=== PATIENT | male | born 1970 | race Caucasian/White ===

== ENCOUNTER 2018-04-07 12:14 | Inpatient (IN) | payer OTHER ==
[~2018-04-07] VITALS: Ht 170.2 cm; Wt 74.1 kg
[2018-04-07 13:56] LABS: Alanine Aminotransfer (ALT/SGP 185 U/L (12-78); Albumin/Globulin Ratio 1.1 (0.8-1.8); Alk Phos 62 U/L (50-136); Anion Gap 12 mmol/L (6-16); Aspartate Aminotrans (AST/SGOT 216 U/L (12-37); Blood Urea Nitrogen 15 mg/dL (8-24); Bun/Creatinine Ratio 18.4 (12.0-20.0); CO2, Blood 24 mmol/L (21-32); Calcium, Blood 9.4 mg/dL (8.5-10.1); Chloride, Blood 95 mmol/L (98-108); Creatinine, Blood 0.81 mg/dL (0.60-1.20); Ethanol (Alcohol), Blood, Med 273 mg/dL; Globulin, Blood 3.5 g/dL (2.2-4.0); Glomerular Filtration Rate >60 (60-); Glucose, Blood 104 mg/dL (70-99); Potassium, Blood 3.1 mmol/L (3.5-5.5); Salicylate <1.7 mg/dL (2.8-20.0); Sodium, Blood 131 mmol/L (136-145); Thyroxine (T4) 9.2 ug/dL (4.5-12.1); Total Protein, Blood 7.5 g/dL (6.4-8.2)
[2018-04-07 14:03] LABS: Acetaminophen, Random <2.0 ug/mL (10.0-30.0)
[2018-04-07 14:05] LABS: BASOPHILS ABSOLUTE AUTO 0.05 K/mm3 (0.00-0.23); BASOPHILS PERCENT AUTO 1 % (0-2); EOSINOPHILS PERCENT AUTO 1 % (0-6); Hematocrit 41.6 % (37.0-53.0); Hemoglobin 14.3 g/dL (13.5-17.5); IMMATURE GRAN ABSOLUTE AUTO 0.03 K/mm3 (0.00-0.10); IMMATURE GRAN PERCENT AUTO 0 % (0-1); LYMPHOCYTES ABSOLUTE AUTO 1.58 K/mm3 (0.84-5.20); LYMPHOCYTES PERCENT AUTO 21 % (21-46); MONOCYTES ABSOLUTE AUTO 1.12 K/mm3 (0.16-1.47); MONOCYTES PERCENT AUTO 15 % (4-13); Mean Corpuscular HGB 32.1 pg (26.0-34.0); Mean Corpuscular HGB Conc 34.4 g/dL (31.5-36.5); Mean Corpuscular Volume 94 fL (80-100); Mean Platelet Volume 11.4 fL (9.1-12.4); NEUTROPHILS ABSOLUTE AUTO 4.65 K/mm3 (1.96-9.15); NEUTROPHILS PERCENT AUTO 62 % (41-73); Platelet Count 170 K/mm3 (150-400); RDW Coefficient Variation 12.7 % (11.7-14.2); RDW Standard Deviation 43.8 fL (35.1-46.3); Red Blood Cell Count 4.45 M/mm3 (4.30-5.90); White Blood Cell Count 7.53 K/mm3 (4.00-11.30)
[2018-04-07 14:09] LABS: Source, Urine Clean Catch
[2018-04-07 14:14] LABS: Bilirubin, Urine Neg (Neg); Blood, Urine Neg (Neg); Glucose Qualitative, Urine Neg (Neg); Ketones, Urine Neg (Neg); Leukocyte Esterase, Urine 1+ (Neg); Nitrite, Urine Neg (Neg); Protein, Urine 2+ (Neg); Urobilinogen, Urine NORM (Normal)
[2018-04-07 14:24] LABS: Appearance, Urine Clear (Clear); Color, Urine Yellow (P-Yellow); Red Blood Cells, Urine 0-2 /hpf (0-2)
[2018-04-07 14:25] LABS: Bacteria Mod /hpf; Squamous Epithelial Cells Not Seen /hpf (Few)
[2018-04-07 14:39] LABS: U Amphetamine Screen Not Detected; U Barbituate Screen Not Detected; U Benzodiazapine Screen Not Detected; U Buprenorphine Screen Not Detected; U Cannabinoids Screen Not Detected; U Cocaine Screen Not Detected; U Methadone Screen Not Detected; U Methamphetamine Screen Not Detected; U Opiates Screen Not Detected; U Oxycodone Screen Not Detected; U Phencyclidine Screen Not Detected; U Propoxyphene Screen Not Detected
--- NOTE | 2018-04-07 19:04 | NUR ---
PT ADMITTED AT 1715 VIA STRETCHER FROM ED. PT NON-VERBAL AND UNRESPONSIVE AT PRESENT. PT PLACED ON L SIDE RECOVERY POSITION FOR AIRWAY PROTECTION. PT REPORTEDLY VOIDED IN URINAL IN ED, ATTENDS PLACE FOR NOW TO ALLOW FOR ASSESSMENT OF ROY IF NEEDED. BANANNA BAG AT 200ML VIA R WRIST. VS AND SATS NOTED. REMAINS IN ST. AIRWAY IS PATENT. PT WILL AROUSE TO SPONT COUGH AND WILL ALSO MOVE ARMS IN RANDOM FASHION. NO N/V. NO SECREATIONS WITH COUGH. REPORTED OFF TO LJ MADISON.
--- NOTE | 2018-04-07 20:00 | NUR ---
ASSUMED CARE OF PT AT 1915. REPORT RECEIVED. PT PRESENTS IN BED. SOMEWHAT SOMNULENT. PT AWAKENS AT TIMES AND THEN FALLS ASLEEP. NOTED TO BE TREMOROUS. WILL DO CIWA SCORING Q 4 HOURS AND PRN. WILL REVIEW CHART AND PLAN OF CARE FOR THIS PT.
--- NOTE | 2018-04-07 23:51 | NUR ---
PT SPEAKING IF HE IS AT WORK. STATING THAT HE NEEDED TO ORDER ITEMS FOR WORK. PT IRRITABLE AT TIMES, CONFUSED ALTHOUGH HE IS ABLE TO STATE HE IS IN THE HOSPITAL. PT'S GIRLFRIEND, CEDRIC, COMES TO SEE PT AND HAS CHOSEN TO SPEND THE NIGHT IN ROOM. PT AGREES THAT INFORMATION CAN BE GIVEN TO CEDRIC. HAVE MEDICATED PT TWICE WITH 1 MG ATIVAN, AND ONCE WITH 50 MG LIBRIUM. SEE CIWA SCORING FLOWSHEET FOR DETAILS. WILL CONTINUE TO MONITOR PT.
--- NOTE | 2018-04-08 02:10 | NUR ---
PT COOPERATIVE WITH VOIDING. WAS NOTED TO BE TRYING TO GET OUT OF BED. WHEN ASKED IF HE NEEDED TO URINATE HE STATED 'YES'. ASSISTED PT WITH URINAL. ABLE TO VOID Q.S. PT HAS BEEN MEDICATED AGAIN WITH 1 MG ATIVAN.
[2018-04-08 03:23] LABS: BASOPHILS ABSOLUTE AUTO 0.05 K/mm3 (0.00-0.23); BASOPHILS PERCENT AUTO 1 % (0-2); EOSINOPHILS PERCENT AUTO 5 % (0-6); Hematocrit 41.9 % (37.0-53.0); IMMATURE GRAN ABSOLUTE AUTO 0.01 K/mm3 (0.00-0.10); IMMATURE GRAN PERCENT AUTO 0 % (0-1); LYMPHOCYTES ABSOLUTE AUTO 1.18 K/mm3 (0.84-5.20); LYMPHOCYTES PERCENT AUTO 20 % (21-46); MONOCYTES PERCENT AUTO 14 % (4-13); Mean Corpuscular HGB 31.8 pg (26.0-34.0); Mean Corpuscular HGB Conc 33.4 g/dL (31.5-36.5); Mean Corpuscular Volume 95 fL (80-100); Mean Platelet Volume 10.5 fL (9.1-12.4); NEUTROPHILS ABSOLUTE AUTO 3.44 K/mm3 (1.96-9.15); NEUTROPHILS PERCENT AUTO 60 % (41-73); Platelet Count 157 K/mm3 (150-400); RDW Coefficient Variation 12.9 % (11.7-14.2); RDW Standard Deviation 45.5 fL (35.1-46.3); White Blood Cell Count 5.78 K/mm3 (4.00-11.30)
[2018-04-08 03:47] LABS: Alanine Aminotransfer (ALT/SGP 188 U/L (12-78); Albumin, Blood 3.5 g/dL (3.4-5.0); Albumin/Globulin Ratio 1.1 (0.8-1.8); Alk Phos 56 U/L (50-136); Anion Gap 9 mmol/L (6-16); Aspartate Aminotrans (AST/SGOT 210 U/L (12-37); Blood Urea Nitrogen 10 mg/dL (8-24); Bun/Creatinine Ratio 16.1 (12.0-20.0); CO2, Blood 25 mmol/L (21-32); Calcium, Blood 8.4 mg/dL (8.5-10.1); Chloride, Blood 106 mmol/L (98-108); Creatinine, Blood 0.62 mg/dL (0.60-1.20); Globulin, Blood 3.2 g/dL (2.2-4.0); Glomerular Filtration Rate >60 (60-); Glucose, Blood 74 mg/dL (70-99); Magnesium, Blood 1.5 mg/dL (1.6-2.4); Phosphorus, Blood 3.8 mg/dL (2.5-4.9); Potassium, Blood 3.8 mmol/L (3.5-5.5); Sodium, Blood 140 mmol/L (136-145); Total Protein, Blood 6.7 g/dL (6.4-8.2); Troponin I <0.015 ng/mL (0.000-0.040)
--- NOTE | 2018-04-08 06:00 | NUR ---
PT REMAINS WITH GROIN SITE SOFT WITHOUT HEMATOMA. NO OOZING. PT REMAINS PLEASANTLY FORGETFUL AND NEEDS GENTLE REORIENTING AT TIMES. PT DENIES PAIN. TOLERATES TURNS IN BED WELL WITHOUT COMPLAINTS. WILL CONTINUE TO MONITOR PT, AND WILL REPORT OFF TO ONCOMING RN.
--- NOTE | 2018-04-08 07:22 | NUR ---
ASSUMED CARE: PT RESTING IN BED AT THIS TIME. STATES HE KNOWS HE'S IN THE HOSPITAL BUT LISTED WRONG LOCATION. TREMORS NOTED WHEN HANDS ARE RAISED. DENIES NAUSEA OR HEADACHES AT THIS TIME. ASKED ABOUT COWORKERS, STATES THEY WERE HERE WHEN HE WAS ADMITTED. VSS AT THIS TIME. SERVICE MANAGER RN ADMINISTERED LIBRIUM AND ATIVAN. BED ALARM ON
--- NOTE | 2018-04-08 08:46 | NUR ---
DISCUSSED WITH DR SIMMONS PT'S STATUS. DR SMITH WITH CURRENT ORDERS AND PARAMETERS FOR ATIVAN AND LIBRIUM. DISCUSSED PT'S LOW MAG AND DESIRE TO EAT. MAG ALREADY IN BANANA BAG PT IS CURRENTLY RECIEVING. DIET ORDER RECIEVED. CIWA CURRENTLY 10, PT APPEARS TO BE SLEEPING AT THIS TIME
--- NOTE | 2018-04-08 14:22 | NUR ---
THIS RN TOLD PT THAT HE WAS NOT ALLOWED TO CHEW ON THIS UNIT. HE BECAME SLIGHTLY AGITATED. THE EFFECTS OF NICOTINE WAS EXPLAINED TO HIM. OFFERED NICOTINE PATCH BUT HE DECLINED. PT APPEARS TO BE SLEEPING NOW.
--- NOTE | 2018-04-08 18:24 | NUR ---
SHIFT SUMMARY: MEDICATED MULTIPLE TIMES THIS SHIFT FOR WITHDRAWAL SYMPTOMS. CIWA BETWEEN 6 AND 15 THIS SHIFT. CAME BY TO VISIT, QUESTIONS ANSWERED TO SATISFACTION. BED ALARM IN PLACE DUE TO CONFUSION AND IMPULSIVENESS AT TIMES. NO FURTHER NEEDS OR CONCERNS AT THIS TIME
--- NOTE | 2018-04-08 19:20 | NUR ---
ASSUMED CARE OF PT AT 1900. REPORT RECEIVED. PT PRESENTS ALERT AND ORIENTED. IS ABLE TO HOLD CONVERSATION. PT STATES THAT HE IS NOT HAVING THE HALLUCINATIONS THAT HE WAS HAVING PRIOR. IS ABLE TO USE URINAL AND VOID QS. IN NO APPARENT DISTRESS. WILL CONTINUE TREATMENT PLAN ESTABILISHED. WILL REVIEW CHART AND PLAN OF CARE FOR THIS PT.
--- NOTE | 2018-04-08 23:00 | NUR ---
HAVE MEDICATED PT WITH 50 MG LIBRIUM WHEREAS PT STATES HE IS FEELING BETTER. SEE CIWA SCORING FOR DETAILS. PT HAS BEEN HUNGRY AND IS ABLE TO EAT A SANDWHICH AND ROOTBEER. PT HAS BEEN OPEN ABOUT DISCUSSING HIS ETOH ABUSE. RECOMMENDATIONS GIVEN FOR AA MEETINGS AND ESTABILISHING A SUPPORT GROUP. PT STATES THAT HE NORMALLY GETS OFF WORK, AND THEN STARTS DRINKING DAILY. WILL CONTINUE TO GIVE SUPPORT AND ALLOW PT TO EXPRESS HIS FEELINGS.
--- NOTE | 2018-04-09 02:57 | NUR ---
PT CLAIMS THAT HE IS SEEING A "GIANT SPIDER WALKING ON THE FLOOR" HAD MILD TO MODERATE TREMORS. MEDICATED PT WITH 50 MG LIBRIUM. PT HAS BEEN ABLE TO REST SOME WITHOUT FURTHER REPORTS OF HALLUCINATIONS. HAS HAD FOUR BOUTS OF LOOSE STOOLS. SAMPLE SENT TO LAB FOR R/O C-DIFF WHICH HAS RETURNED NEGATIVE. HAVE ADVANCED DIET FOR PT TO REGULAR. NO SWALLOW ISSUES TO NOTE. WILL CONTINUE TO MONITOR PT.
[2018-04-09 04:34] LABS: BASOPHILS ABSOLUTE AUTO 0.04 K/mm3 (0.00-0.23); BASOPHILS PERCENT AUTO 1 % (0-2); EOSINOPHILS ABSOLUTE AUTO 0.31 K/mm3 (0.00-0.68); EOSINOPHILS PERCENT AUTO 5 % (0-6); Hematocrit 40.3 % (37.0-53.0); Hemoglobin 13.2 g/dL (13.5-17.5); IMMATURE GRAN ABSOLUTE AUTO 0.02 K/mm3 (0.00-0.10); IMMATURE GRAN PERCENT AUTO 0 % (0-1); LYMPHOCYTES ABSOLUTE AUTO 0.82 K/mm3 (0.84-5.20); LYMPHOCYTES PERCENT AUTO 14 % (21-46); MONOCYTES ABSOLUTE AUTO 0.74 K/mm3 (0.16-1.47); MONOCYTES PERCENT AUTO 13 % (4-13); Mean Corpuscular HGB 32.1 pg (26.0-34.0); Mean Corpuscular HGB Conc 32.8 g/dL (31.5-36.5); NEUTROPHILS PERCENT AUTO 66 % (41-73); Platelet Count 180 K/mm3 (150-400); RDW Coefficient Variation 13.1 % (11.7-14.2); RDW Standard Deviation 47.3 fL (35.1-46.3); Red Blood Cell Count 4.11 M/mm3 (4.30-5.90); White Blood Cell Count 5.73 K/mm3 (4.00-11.30)
[2018-04-09 04:41] LABS: Mean Corpuscular Volume 98 fL (80-100)
[2018-04-09 05:02] LABS: Alanine Aminotransfer (ALT/SGP 132 U/L (12-78); Alk Phos 53 U/L (50-136); Anion Gap 8 mmol/L (6-16); Aspartate Aminotrans (AST/SGOT 88 U/L (12-37); Bilirubin, Total 0.7 mg/dL (0.1-1.0); Blood Urea Nitrogen 8 mg/dL (8-24); Bun/Creatinine Ratio 12.5 (12.0-20.0); CO2, Blood 24 mmol/L (21-32); Calcium, Blood 7.9 mg/dL (8.5-10.1); Chloride, Blood 109 mmol/L (98-108); Creatinine, Blood 0.64 mg/dL (0.60-1.20); Glomerular Filtration Rate >60 (60-); Glucose, Blood 101 mg/dL (70-99); Magnesium, Blood 1.7 mg/dL (1.6-2.4); Potassium, Blood 3.7 mmol/L (3.5-5.5); Sodium, Blood 141 mmol/L (136-145)
--- NOTE | 2018-04-09 06:29 | NUR ---
PT MEDICATED AGAIN WITH 50 MG LIBRIUM. THIS HAS BEEN AFFECTIVE IN KEEPING CIWA LOWER THAN 10. PT HAS NOT HAD ANY FURTHER DIARRHEA THIS NIGHT. WILL CONTINUE TO MONITOR PT, AND WILL REPORT OFF TO ONCOMING RN.
--- NOTE | 2018-04-09 07:24 | NUR ---
ASSUMED CARE: PT RESTING ELIOT IN BED. KNOWS NAME, BIRTHDAY AND WHERE HE IS. STATES HE FEELS MUCH BETTER THAN YESTERDAY AND HASN'T HALLUCINATED IN A LONG TIME. BED ALARM ON. SEE CIWA SCORING. NO ACUTE NEEDS OR CONCERNS AT THIS TIME
--- NOTE | 2018-04-09 12:35 | NUR ---
ASSISTED PT TO TOILET AND BACK TO BED. BED ALARM ON, SEE CALVIN. AT BEDSIDE AND PROGRESS EXPLAINED. NO FURTHER NEEDS OR CONCERNS AT THIS TIME
--- NOTE | 2018-04-09 17:52 | NUR ---
SHIFT SUMMARY: PT RESTING QUIETLY. PRNS GIVEN ONCE PLUS SCHEDULED MEDS FOR WITHDRAWALS. CIWA HAS BEEN BELOW 8 ALL DAY. VISITED DURING THE DAY. AMBULATION TO TOILET WITH ASSISTANCE. NO FURTHER NEEDS OR CONCERNS AT THIS TIME
--- NOTE | 2018-04-09 20:00 | NUR ---
ASSUMED CARE OF PT AT 1900. REPORT RECEIVED. PT PRESENTS IN BED. ALERT AND ORIENTED. PLEASANT AND COOPERATIVE WITH CARE AND ASSESSMENT. NOTED PT REMAINS WITH SOME TREMORS. DENIES NAUSEA OR HEADACHE. DISCUSSED WITH PT PLAN OF CARE FOR THE NIGHT AND THE ADDITION OF SCHEDULED LIBRIUM AND ATIVAN. WILL REVIEW CHART AND PLAN OF CARE FOR THIS PT.
--- NOTE | 2018-04-10 01:00 | NUR ---
PT ATTEMPTS TO GET OUT OF BED EARLIER. STATED HE WAS GOING TO A [employer] ST[facility] FOR CHEWING TOBACCOL. PT DEMONSTRATING INCREASING CIWA SCORE OF 17. VERY AGITATED, AND VERBALLY AGGRESSIVE TO ASSISTING RN. MEDICATED PT WITH 50 MG LIBRIUM, AND 2 MG LORAZEPAM IV. PT CLAIMS THAT HE JUST CAME TO HOSPITAL TODAY, AND ARGUED WHEN HE WAS TOLD HE HAS BEEN HERE FOR AT LEAST THREE DAYS. PT CURRENTLY RESTING IN BED. WILL CONTINUE TO MONITOR.
--- NOTE | 2018-04-10 03:22 | NUR ---
PT AWAKENS AND PULLS OFF HIS GOWN AND PULLS OFF HIS MONITOR LEADS. IS CONFUSED. THESE HAVE BEEN REPLACED. PT THEN PULLS THESE BACK OFF. HAVE REMOVED PT'S GOWN TO PREVENT PT FROM INADVERTANTLY PULLING OUT HIS IV. ROY REMAINS PATENT DRAINING YELLOW URINE. DIGNISHIELD CONTINUES TO DRAIN WATERY DRAINAGE. CURTAINS TO ROOM HAVE BEEN OPENED TO ALLOW BETTER VIEWING OF PT FOR HIS SAFETY.
--- NOTE | 2018-04-10 03:26 | NUR ---
PT PULLS OUT HIS IV, AND IS MAKING ATTEMPT TO GET OUT OF BED. BED ALARM ACTIVATES. PT VERY AGITATED, AND NOTED THAT HIS CIWA IS ELEVATING. MEDICATED PT WITH 4 MG ATIVAN. PT CONFUSED, AND SOMEWHAT ARGUEMENATIVE. SEE CIWA SCORING FOR DETAILS.
--- NOTE | 2018-04-10 05:28 | NUR ---
PT BECOMES VERY AGITATED, AND CLIMBS OVER RAILING, PULLS OUT IV, AND REMOVES ALL HIS LEADS. VERY UNSTEADY ON FEET. PT BELIEVES THAT HE IS IN THE "[facility]". VERY BELIGERANT WITH CONVERSATION. PT IS NOT REDIRECTABLE. CALVIN SCORING ELEVATING. DR BANGURA IN UNIT. ORDER FOR V[place]KATA RESTRAINT GIVEN. PT THEN BECOMES VERY COMBATIVE AND NEEDS TO HAVE SECURITY CALLED TO ROOM. PT VERY AGGRESSIVE. PT NOW IN FIVE POINT RESTRAINS. PRECEDEX ORDERED AND PT INITIATED AT 0.4 MCG'S. HAS BEEN INCREASED TO 0.5MCG'S. PT VERY DIAPHORETIC. WILL CONTINUE TO MONITOR.
--- NOTE | 2018-04-10 07:27 | NUR ---
ASSUMED CARE: PT IN FOUR POINT RESTRAINTS WITH PRECEDEX GTT AT 0.5MCG/KG/MIN. HE IS RESTING QUIETLY AT THIS TIME. VSS. WILL CONTINUE TO MONITOR
--- NOTE | 2018-04-10 09:24 | NUR ---
PT PULLED SECOND IV OUT. ATTEMPTED TO START NEW ONE AND PT BECAME AGITATED, THRASHING IN BED, SWEARING. DR SIMMONS ENTERED ROOM TO SEE PT. SHE ADVISED ATIVAN WHICH WAS GIVEN, SEE EMAR. PT CONTINUED THRASHING IN BED, PULLING AT RESTRAINTS, YELLING INTO LUCERO THAT HE NEEDS SOMETHING TO CUT THEM WITH. STARTED SPEAKING INAPPROPRIATELY TO STAFF, ASKING QUESTIONS SUCH WHEN THIS RN LOST [employer] AND WHAT TIME DO YOU GET OFF WORK. STAFF ATTEMPTED TO SET LIMITS WITH PT AND STATED THAT CURRENT SPEECH IS INAPPROPRIATE AND WILL NOT BE TOLERATED. CURRENTLY APPEARS TO BE SLEEPING.
--- NOTE | 2018-04-10 09:42 | NUR ---
PT'S SIGNIFICANT OTHER WAS CALLED AND GIVEN AN UPDATE. SHE STATES SHE IF PLANNING ON VISITING TODAY AND WAS TOLD THAT IF VISIT AGITATES HIM MORE SHE WILL BE ASKED TO LEAVE EARLY WHICH SHE WAS UNDERSTANDING OF THIS. PT CURRENTLY RESTING QUIETLY
--- NOTE | 2018-04-10 13:11 | NUR ---
PT'S STOPPED BY TO SEE PT. CURRENT CARE DISCUSSED WITH HER. PT CONTINUES TO REST WITH PRECEDEX AT 0.6MCG/KG/MIN. NOT DISTURBING PT TO OFFER BATH AT THIS TIME DUE TO AGITATION OCCURING WHEN PT IS DISTURBED. NO ACUTE CHANGES OR NEEDS AT THIS TIME
--- NOTE | 2018-04-10 14:22 | NUR ---
PT CONTINUES TO REST QUIETLY AT THIS TIME WITH PRECEDEX ON 0.6MCG/KG/MIN. RESTRAINTS IN PLACE. VSS AT THIS TIME
--- NOTE | 2018-04-10 18:31 | NUR ---
SHIFT SUMMARY: PT CONTINUES TO BE ON PRECEDEX DRIP. TITRATING FOR AFFECT AND GIVING PRN ATIVAN FOR AGITATION. CIWA SCORES HAVE BEEN BETWEEN 15 AND 20 T/O DAY. CAME BY TO VISIT ONCE AND IS AWARE OF PT'S CONDITION. PT CONTINUES TO BE CONFUSED AND AGITATION WITH DISTURBANCE FROM STAFF.
--- NOTE | 2018-04-10 20:17 | NUR ---
PATIENT RESTING QUIETLY THEN AWAKENS AND STARTS PULLING ON RESTRAINTS AND YELLING OUT, SLOW TO ANSWER QUESTIONS. VERBALIZED HE WAS HERE TO [place]OVE [place]. AFTER BEING REORIENTED TO BEING IN THE HOSPITAL FOR WITHDRAWALS, AND EXPLAINED NEED FOR RESTRAINTS DUE TO FORGETFULNESS AND HITTING AT STAFF, PATIENT BECAME CONCERNED ABOUT WHAT CEDRIC THOUGHT ABOUT THE SITUATION. PATIENT APPEARS TO RELAX WITH REORIENTATION. WHEN SLEEPING BIOX DROPPING TO 89% OXYGEN PLACED AT 2L/NC. ATTENDS IN PLACE DUE TO POSSIBLE INCONTINENCE. PRECEDEX INFUSING AT 0.7MCG CONTINUES.
[2018-04-11 04:15] LABS: BASOPHILS ABSOLUTE AUTO 0.05 K/mm3 (0.00-0.23); BASOPHILS PERCENT AUTO 1 % (0-2); EOSINOPHILS ABSOLUTE AUTO 0.33 K/mm3 (0.00-0.68); EOSINOPHILS PERCENT AUTO 4 % (0-6); Hematocrit 41.6 % (37.0-53.0); Hemoglobin 13.6 g/dL (13.5-17.5); IMMATURE GRAN ABSOLUTE AUTO 0.03 K/mm3 (0.00-0.10); IMMATURE GRAN PERCENT AUTO 0 % (0-1); LYMPHOCYTES ABSOLUTE AUTO 0.83 K/mm3 (0.84-5.20); LYMPHOCYTES PERCENT AUTO 11 % (21-46); MONOCYTES ABSOLUTE AUTO 1.15 K/mm3 (0.16-1.47); MONOCYTES PERCENT AUTO 15 % (4-13); Mean Corpuscular HGB 31.9 pg (26.0-34.0); Mean Corpuscular HGB Conc 32.7 g/dL (31.5-36.5); Mean Corpuscular Volume 97 fL (80-100); Mean Platelet Volume 10.4 fL (9.1-12.4); NEUTROPHILS PERCENT AUTO 70 % (41-73); Platelet Count 239 K/mm3 (150-400); RDW Standard Deviation 46.5 fL (35.1-46.3); Red Blood Cell Count 4.27 M/mm3 (4.30-5.90); White Blood Cell Count 7.89 K/mm3 (4.00-11.30)
[2018-04-11 04:40] LABS: Alanine Aminotransfer (ALT/SGP 84 U/L (12-78); Albumin/Globulin Ratio 0.9 (0.8-1.8); Alk Phos 60 U/L (50-136); Anion Gap 7 mmol/L (6-16); Aspartate Aminotrans (AST/SGOT 29 U/L (12-37); Bilirubin, Total 0.6 mg/dL (0.1-1.0); Blood Urea Nitrogen 5 mg/dL (8-24); CO2, Blood 24 mmol/L (21-32); Calcium, Blood 8.2 mg/dL (8.5-10.1); Chloride, Blood 108 mmol/L (98-108); Creatinine, Blood 0.63 mg/dL (0.60-1.20); Globulin, Blood 3.4 g/dL (2.2-4.0); Glomerular Filtration Rate >60 (60-); Glucose, Blood 134 mg/dL (70-99); Magnesium, Blood 1.7 mg/dL (1.6-2.4); Potassium, Blood 3.7 mmol/L (3.5-5.5); Sodium, Blood 139 mmol/L (136-145); Total Protein, Blood 6.4 g/dL (6.4-8.2)
--- NOTE | 2018-04-11 05:00 | NUR ---
SUMMARY PATIENT REMAINS ON PRECEDEX DRIP AT 0.7MCG. PATIENT AWAKENS EASILY AT TIMES WAKING WITH A START AND FEARFUL THAT HE NEEDS TO CALL WORK. PATIENT APPEARS MORE ANXIOUS AFTER ATIVAN PRN, RELAXING AFTER PO LIBRIUM GIVEN. 4 POINT RESTRAINTS CONTINUE DUE TO PATIENT BEING VERY IMPULSIVE AND PULLING AT LINES AND CORDS DESPITE FREQUENT REMINDERS OF WHY THEY ARE IN PLACE. PATIENT PJ PO WITHOUT DIFFICULTY.
--- NOTE | 2018-04-11 07:30 | NUR ---
ASSUMED CARE OF PATIENT; SEE ASSESSMENT CHARTING FOR DETAILS. PATIENT SLEEPING BUT OPENS EYES TO VERBAL STIMULATION. AWARE OF WHERE HE IS, HIS SOCIAL SECURITY NUMBER AND . ANSWERS QUESTIONS SLOWLY AND DELIBERATELY. RESTRAINTS REMOVED FROM LE'S AND RESTRAINTS MAINTAINED TO BILAT. UE'S.; REMINDED WHY HE IS IN THE HOSPITAL, ETC. PATIENT SOMEWHAT CRABBY AND SHORT-TEMPERED. UPSET WHEN ASSIST. OFFERED; BUT THANKFUL THE NEXT TIME ASSIST. PROVIDED; PERSONALITY LABILE. REMAINS ON 0.7MCG/KG/MIN OF PRECEDEX WELL RECEIVING LIBRIUM ROUTINELY AND PRN. RESTRAINTS IN PLACE TO ALL EXTREM.; REMOVED FROM LE'S AT THIS TIME. PATIENT OVERALL COOPERATIVE BUT BECOMES CONFUSED EASILY. CIWA < 10 AT THIS TIME.
--- NOTE | 2018-04-11 08:15 | NUR ---
DR. Gurwinder SIMMONS HERE; SEE ORDERS.
--- NOTE | 2018-04-11 09:30 | NUR ---
PATIENTS' S.O., CEDRIC, HERE; SUPPORTIVE OF PATIIENT. PATIENT SOMEWHAT FOUL MOUTHED BUT PLEASANT AT THE SAME TIME, (TO S.O.). CONFUSES SITUATION, ETC. WANTING TO CHEW TOBACCO; RN WILL START NICOTINE BATH.
--- NOTE | 2018-04-11 12:00 | NUR ---
SLEEPING; NOT AROUSING TO LOUD/VERBAL STIMULI; PRECEDEX DRIP REDUCED TO 0.6 MCG/KG/MIN.
--- NOTE | 2018-04-11 12:30 | NUR ---
DR. FLORES MADE ROUNDS; SEE NOTES.
--- NOTE | 2018-04-11 13:08 | NUR ---
PRECEDEX REDUCED TO 0.5MCG/KG/MIN; PATIENT REMAINS SLEEPY AND SBP RUNNING 80'S.
--- NOTE | 2018-04-11 14:20 | NUR ---
PRECEDEX REDUCED TO 0.3MCG/KG/MIN.
--- NOTE | 2018-04-11 15:20 | NUR ---
RESTRAINTS REDUCED TO 0.2MCG/KG/MIN.
--- NOTE | 2018-04-11 15:40 | NUR ---
RESTRAINTS OFF; PATIENT COOPERATIVE AND PLEASANT; CIWA 4.
--- NOTE | 2018-04-11 15:45 | NUR ---
PRECEDEX DRIP TURNED OFF.
--- NOTE | 2018-04-11 16:15 | NUR ---
T/C TO DR. SIMMONS TO UPDATE ON PATIENTS' STATUS AND DETERMINE IF OKAY TO D/C IVF'S AND CHANGE TO MED. FLOOR STATUS; ORDERS GIVEN.
--- NOTE | 2018-04-11 17:32 | NUR ---
SUMMARY: NO ACUTE CHANGES; AMBULATED T/O ICU USING WALKER AND RN STANDING BY. STATES HE WAS A LITTLE DIZZY BUT HE'S USE TO WALKING OFF BALANCE (D/T HIS DRINKING); PATIENT MAKING A JOKE. APPEARS SERIOUS RE: STAYING OFF OF ALCOHOL; INFORMED RN RE: LAST TIME HE WAS HOSPITALIZED AND WENT THROUGH WITHDRAWALS (ABOUT 2-3 YEARS AGO); SHARED HIS EXPERIENCE AND IS HOPING TO STEER AWAY FROM THINGS/PEOPLE THAT MAY CAUSE HIM TO DRINK ETOH AGAIN. VOIDING IN URINAL WITHOUT DIFFICULTY; URINE CLEARER/RETAIL SERVICE TECHNICIAN IN COLOR. IVF'S DC'D. SITTING/DANGLING AT BEDSIDE AND EATING REGULAR DINNER. REMAINS POSITIVE AND COOPERATIVE; UP IN ROOM A LITTLE AND LAYS DOWN IN BED AND THEN DANGLES, AGAIN. REMAINS MED. FLOOR STATUS BUT NO ROOMS AVAILABLE AT THIS TIME.
--- NOTE | 2018-04-11 20:14 | NUR ---
PATIENT RESTING QUIETLY IN BED, UP IN ROOM WITHOUT DIFFICULTY. A&O X3 PATIENT VERBALIZED HE STILL FEELS A LITTLE TIRED AND LIKE THE SEDATIVES WE WERE GIVING HIM ARE STILL WORKING. PATIENT VERBALIZED HE IS READY TO STAY OFF ALCOHOL NOW. WILL CONTINUE TO MONITOR CIWA TONIGHT.
[2018-04-12 03:49] LABS: BASOPHILS ABSOLUTE AUTO 0.04 K/mm3 (0.00-0.23); BASOPHILS PERCENT AUTO 1 % (0-2); EOSINOPHILS ABSOLUTE AUTO 0.25 K/mm3 (0.00-0.68); EOSINOPHILS PERCENT AUTO 4 % (0-6); Hematocrit 40.6 % (37.0-53.0); Hemoglobin 13.5 g/dL (13.5-17.5); IMMATURE GRAN ABSOLUTE AUTO 0.02 K/mm3 (0.00-0.10); IMMATURE GRAN PERCENT AUTO 0 % (0-1); LYMPHOCYTES ABSOLUTE AUTO 1.06 K/mm3 (0.84-5.20); LYMPHOCYTES PERCENT AUTO 15 % (21-46); MONOCYTES ABSOLUTE AUTO 1.23 K/mm3 (0.16-1.47); MONOCYTES PERCENT AUTO 17 % (4-13); Mean Corpuscular HGB 31.6 pg (26.0-34.0); Mean Corpuscular HGB Conc 33.3 g/dL (31.5-36.5); Mean Corpuscular Volume 95 fL (80-100); NEUTROPHILS ABSOLUTE AUTO 4.53 K/mm3 (1.96-9.15); NEUTROPHILS PERCENT AUTO 63 % (41-73); RDW Coefficient Variation 13.1 % (11.7-14.2); RDW Standard Deviation 45.9 fL (35.1-46.3); Red Blood Cell Count 4.27 M/mm3 (4.30-5.90); White Blood Cell Count 7.13 K/mm3 (4.00-11.30)
[2018-04-12 03:55] LABS: Mean Platelet Volume 10.7 fL (9.1-12.4); Platelet Count 250 K/mm3 (150-400)
[2018-04-12 04:07] LABS: Alanine Aminotransfer (ALT/SGP 63 U/L (12-78); Albumin, Blood 2.9 g/dL (3.4-5.0); Albumin/Globulin Ratio 0.9 (0.8-1.8); Alk Phos 59 U/L (50-136); Anion Gap 7 mmol/L (6-16); Aspartate Aminotrans (AST/SGOT 23 U/L (12-37); Bilirubin, Total 0.4 mg/dL (0.1-1.0); Blood Urea Nitrogen 9 mg/dL (8-24); Bun/Creatinine Ratio 12.5 (12.0-20.0); CO2, Blood 24 mmol/L (21-32); Calcium, Blood 8.5 mg/dL (8.5-10.1); Chloride, Blood 111 mmol/L (98-108); Creatinine, Blood 0.72 mg/dL (0.60-1.20); Globulin, Blood 3.4 g/dL (2.2-4.0); Glomerular Filtration Rate >60 (60-); Glucose, Blood 89 mg/dL (70-99); Magnesium, Blood 1.9 mg/dL (1.6-2.4); Potassium, Blood 3.8 mmol/L (3.5-5.5); Sodium, Blood 142 mmol/L (136-145); Total Protein, Blood 6.3 g/dL (6.4-8.2)
--- NOTE | 2018-04-12 05:42 | NUR ---
SUMMARY PATIENT UP AND DOWN T/O NIGHT AT TIMES AMB IN THE UNIT. DENIES NEED FOR MEDICATION TO HELP HIM RELAX. " I'M READY TO GO HOME" CIWA 0-3 T/O THE NIGHT. NO OTHER COMPLAINTS T/O THE NIGHT.
--- NOTE | 2018-04-12 07:38 | NUR ---
PT AWAKE WALKING AROUND IN ICU UNIT. PT COOPERATIVE, PLEASANT, AND ORIENTED X4. PT REQUEST TO BE DC'D HOME TODAY. CIWA 3, FOR MILD ANXIETY AND RESTLESSNESS. NO TREMOR NOTED, VSS.
--- NOTE | 2018-04-12 08:47 | NUR ---
S/O AT BEDSIDE, SUPPORTIVE.
--- NOTE | 2018-04-12 09:01 | NUR ---
DR SIMMONS IN TO SEE PT, ORDERS TO DISCHARGE HOME, IV'S DC'D, PT DRESSING.
--- NOTE | 2018-04-12 09:47 | NUR ---
PT DC'D TO HOME W S/O AT 0936. VERBAL AND WRITTEN DC INFO GIVEN TO PT AND PT'S S/O WITH CLEAR UNDERSTANDING. NO NEW MEDS ORDERED. PT HAS OHP PAPERWORK AND GIVEN SS NUMBER IF HE NEEDS ADDITIONAL HELP.
--- NOTE | 2018-04-12 10:06 | NUR ---
I SPOKE WITH OUT CLAY PUDDLER, KIMBERLEY MADISON. SHE WILL BE CONTACTING THIS PATIENT REGARDING FINANCIAL HELP, HELP FINDING A PCP, AND ALSO SOME ADDITIONAL INFORMATION ABOUT THE ADAPT PROGRAM.
== END 2018-04-12 09:37 | disposition home or self-care (01) | DRG 897 ==
LOC: ER 12:14 → ICUW 15:51
PROVIDERS: Internal Medicine; ADMIT Internal Medicine
DX: F10.231 Alcohol dependence with withdrawal delirium (principal); E83.42 Hypomagnesemia; Z88.0 Allergy status to penicillin
CPT/HCPCS: 36415; 71045; 80053; 81001; 83735; 84100; 84436; 84443; 84484; 85025; 87086; 87493; 96365; 96366; 96375; 96376; 99285-25; C9113; G0480; J2060; J3411; J3475; J3480; J7030; J7040; J7042

== ENCOUNTER 2018-09-17 17:43 | Emergency (ER) | payer OTHER ==
[~2018-09-17] VITALS: Ht 170.2 cm; Wt 74.8 kg
[2018-09-17 21:01] LABS: Appearance, Synovial Fluid Bloody (Clear); Color, Synovial Fluid Red (None-P Yel)
[2018-09-17 21:15] LABS: BODY FLUID RBC 3.847 (0-0); RBC Count, Synovial Fluid 3847000 /mm3 (0-0); WBC Count, Synovial Fluid 8236 /mm3 (0-180)
[2018-09-17 21:16] LABS: BASOPHILS ABSOLUTE AUTO 0.09 K/mm3 (0.00-0.23); BASOPHILS PERCENT AUTO 2 % (0-2); EOSINOPHILS ABSOLUTE AUTO 0.31 K/mm3 (0.00-0.68); EOSINOPHILS PERCENT AUTO 5 % (0-6); Hematocrit 40.6 % (37.0-53.0); Hemoglobin 13.5 g/dL (13.5-17.5); IMMATURE GRAN ABSOLUTE AUTO 0.02 K/mm3 (0.00-0.10); IMMATURE GRAN PERCENT AUTO 0 % (0-1); LYMPHOCYTES ABSOLUTE AUTO 1.29 K/mm3 (0.84-5.20); LYMPHOCYTES PERCENT AUTO 21 % (21-46); MONOCYTES ABSOLUTE AUTO 0.75 K/mm3 (0.16-1.47); MONOCYTES PERCENT AUTO 12 % (4-13); Mean Corpuscular HGB 31.1 pg (26.0-34.0); Mean Corpuscular HGB Conc 33.3 g/dL (31.5-36.5); Mean Corpuscular Volume 94 fL (80-100); NEUTROPHILS ABSOLUTE AUTO 3.66 K/mm3 (1.96-9.15); NEUTROPHILS PERCENT AUTO 60 % (41-73); Platelet Count 273 K/mm3 (150-400); RDW Coefficient Variation 13.5 % (11.7-14.2); RDW Standard Deviation 46.1 fL (35.1-46.3); Red Blood Cell Count 4.34 M/mm3 (4.30-5.90); White Blood Cell Count 6.12 K/mm3 (4.00-11.30)
[2018-09-17 21:38] LABS: Alanine Aminotransfer (ALT/SGP 95 U/L (12-78); Albumin, Blood 4.3 g/dL (3.4-5.0); Albumin/Globulin Ratio 1.2 (0.8-1.8); Alk Phos 70 U/L (50-136); Anion Gap 9 mmol/L (6-16); Aspartate Aminotrans (AST/SGOT 98 U/L (12-37); Bilirubin, Total 0.7 mg/dL (0.1-1.0); Blood Urea Nitrogen 7 mg/dL (8-24); Bun/Creatinine Ratio 12.3 (12.0-20.0); CO2, Blood 26 mmol/L (21-32); Calcium, Blood 8.5 mg/dL (8.5-10.1); Chloride, Blood 104 mmol/L (98-108); Creatinine, Blood 0.57 mg/dL (0.60-1.20); Globulin, Blood 3.7 g/dL (2.2-4.0); Glomerular Filtration Rate >60 (60-); Glucose, Blood 101 mg/dL (70-99); Potassium, Blood 3.3 mmol/L (3.5-5.5); Sodium, Blood 139 mmol/L (136-145)
[2018-09-17 21:45] LABS: Eos, Synovial Fluid 3 % (0-2); Lymphs, Synovial Fluid 28 % (0-15); Monocytes/Macrophages, Synovia 3 % (0-65); Neutrophils, Synovial Fluid 66 % (0-24)
== END 2018-09-17 22:20 | disposition home or self-care (01) ==
LOC: ER 17:43
PROVIDERS: Physician Assistant
DX: S80.12XA Contusion of left lower leg, initial encounter (principal); S82.52XD Displaced fracture of medial malleolus of left tibia, subsequent encounter for closed fracture with routine healing; M25.062 Hemarthrosis, left knee; F10.20 Alcohol dependence, uncomplicated; W11.XXXA Fall on and from ladder, initial encounter; Z88.0 Allergy status to penicillin; F17.220 Nicotine dependence, chewing tobacco, uncomplicated
CPT/HCPCS: 36415; 73562-LT; 73610; 73701; 80053; 85025; 85651; 86141; 87205; 89051; 99284-25; Q9967